=== PATIENT | male | born 1995 | race Caucasian/White ===

== ENCOUNTER 2017-05-05 10:04 | Emergency (ER) | payer MEDICAID ==
[~2017-05-05] VITALS: Ht 170.2 cm; Wt 95.3 kg
[2017-05-05 10:04] VITALS: BP_SYST 147
[2017-05-05 14:10] VITALS: BP_SYST 144
== END 2017-05-05 14:10 | disposition home or self-care (01) ==
LOC: SED 10:04
DX: J02.9 Acute pharyngitis, unspecified (principal); R05 Cough; I10 Essential (primary) hypertension; R51 Headache
CPT/HCPCS: 99283

== ENCOUNTER 2019-07-22 19:55 | Emergency (ER) | payer BC, MEDICAID ==
[~2019-07-22] VITALS: Ht 175.3 cm; Wt 90.7 kg
[2019-07-22 19:55] VITALS: BP_SYST 179
[2019-07-22 20:58] VITALS: BP_SYST 179
== END 2019-07-22 20:58 | disposition home or self-care (01) ==
LOC: SED 19:55
DX: J06.9 Acute upper respiratory infection, unspecified (principal); I10 Essential (primary) hypertension
CPT/HCPCS: 99282

== ENCOUNTER 2019-09-04 16:13 | Inpatient (IN) | payer BC ==
[~2019-09-04] VITALS: Ht 170.2 cm; Wt 96.2 kg
[2019-09-04 16:23] VITALS: BP_SYST 162
[2019-09-04] MEDS ORDERED: NACL 0.9% 1,000 ML IV SCH ×2 (16:36→19:15)
[2019-09-04] MEDS ORDERED: NACL 0.9% 1,000 ML IV ONE (16:36)
[2019-09-04] MEDS ORDERED: MORPHINE 4 MG/ML INJ. SYRINGE IVP ONE (16:45)
[2019-09-04] MEDS ORDERED: ONDANSETRON HCL 4 MG/2 ML VIAL IVP ONE ×2 (16:45)
[2019-09-04 16:58] LABS: BLOOD, URINE NEGATIVE (NEGATIVE); CLARITY/URINE CLEAR (CLEAR); GLUCOSE,URINE NEGATIVE (NEGATIVE); KETONES,URINE NEGATIVE (NEGATIVE); LEUKOCYTE ESTERASE ,URINE NEGATIVE (NEGATIVE); NITRITE, URINE NEGATIVE (NEGATIVE); PROTEIN URINE 1+ (NEGATIVE); UROBILINOGEN,URINE 0.2 (0.2-1.0)
[2019-09-04 17:05] LABS: BILIRUBIN,URINE NEGATIVE (NEGATIVE); COLOR,URINE AMBER (YELLOW)
[2019-09-04 17:06] LABS: BACTERIA,URINE None Seen /HPF (None Seen); RBC,URINE NONE SEEN /HPF (0-3); WBC,URINE 0-3 /HPF (0-3)
[2019-09-04 17:07] LABS: MUCUS,URINE None Seen /LPF (None Seen)
[2019-09-04 17:08] LABS: BASOPHILS % (AUTO) 0.5 % (0.0-2.0); EOSINOPHILS # (AUTO) 0.3 K/uL (0.0-0.4); EOSINOPHILS % (AUTO) 3.1 % (0.0-4.0); HEMATOCRIT 42.6 % (36-54); HEMOGLOBIN 14.9 g/dL (14.0-18.0); LYMPHOCYTES # (AUTO) 1.2 K/uL (1.0-5.5); MEAN CORPUSCULAR HEMOGLOBIN 31 pg (27-31); MEAN CORPUSCULAR HGB CONC 35 % (32-36); MEAN CORPUSCULAR VOLUME 89 fL (79.0-98.0); MONOCYTES # (AUTO) 0.9 K/uL (0.0-1.0); MONOCYTES % (AUTO) 8.6 % (1.7-9.3); NEUTROPHILS # (AUTO) 7.6 K/uL (1.8-7.7); NEUTROPHILS % (AUTO) 75.8 % (40.0-70.0); PLATELET COUNT (AUTO) 232 K/uL (130-430); RED CELL DISTRIBUTION WIDTH 12.3 % (9.0-15.0)
[2019-09-04 17:11] LABS: CALCIUM 8.5 mg/dL (8.4-11.0); CREATININE 1.12 mg/dL (0.55-1.30); POTASSIUM 3.2 mmol/L (3.5-5.1)
[2019-09-04 17:15] LABS: PROTHROMBIN TIME 10.1 SECS (9.5-12.5)
[2019-09-04 17:16] LABS: ALBUMIN 4.2 g/dL (3.4-4.8)
[2019-09-04] MEDS ORDERED: PIPERACILLIN/TAZO 3.375 GM in NS 50 ML IV ONE (17:45)
[2019-09-04] MEDS ORDERED: metroNIDAZOLE 500 mg/NS 100 ML IV ONE ×2 (18:00→21:42)
[2019-09-04] MEDS ORDERED: PIPERACILLIN/TAZOBACTAM 3.375 GM/VIAL (ZOSYN) IV ONE (18:11)
[2019-09-04] MEDS ORDERED: ACETAMINOPHEN 325 MG TABLET PO PRN (19:15)
[2019-09-04] MEDS ORDERED: ONDANSETRON HCL 4 MG/2 ML VIAL IVP PRN (19:15)
[2019-09-04] MEDS ORDERED: HYDROcodone/ACETAMIN 5-325 MG TAB (NORCO/ VICODIN) PO PRN (19:15)
[2019-09-04] MEDS ORDERED: LR 1,000 ML IV ONE ×2 (20:28→20:30)
[2019-09-04 20:34] VITALS: BP_SYST 158
[2019-09-04 20:46] LABS: PHOSPHORUS 4.1 mg/dL (2.7-4.5); THYROID STIMULATING HORMONE 1.37 uIu/mL (0.36-3.74)
[2019-09-04] MEDS: DOCUSATE SODIUM 100 MG CAPSULE PO SCH ×3 (21:00→22:55)
[2019-09-04] MEDS ORDERED: cefTRIAXone 1 GM VIAL ONE (21:42)
[2019-09-04] MEDS: LR 1,000 ML IV SCH (22:53)
[2019-09-04] MEDS: cefTRIAXone 1 GM in D5W 50 ML IV SCH (22:54)
[2019-09-04] MEDS: LISINOPRIL 10 MG TABLET (PRINIVIL) PO SCH (22:54)
[2019-09-04 23:59] LABS: BARBITURATE, URINE NEGATIVE (NEG <=200); BENZODIAZEPINE, URINE NEGATIVE (NEG <=150); CANNABINOID, URINE NEGATIVE (NEG <=50); COCAINE, URINE NEGATIVE (NEG <=150); METHAMPHETAMINES SCREEN,URINE NEGATIVE (NEG <=500); OPIATE, URINE NEGATIVE (NEG <=100); PHENCYCLIDINE SCREEN,URINE NEGATIVE (NEG <=25); UR TRICYCLIC ANTIDEPRESSANTS NEGATIVE (NEG <=300); URINE AMPHETAMINE NEGATIVE (NEG <=500); URINE METHADONE NEGATIVE (NEG <=200); URINE OXYCODONE SCREEN NEGATIVE (NEG <=100); URINE PROPOXYPHENE SCREEN NEGATIVE (NEG <=300)
[2019-09-05] MEDS ORDERED: POTASSIUM CHLORIDE 20 MEQ TAB.PRT.SR PO ONE ×2 (00:45→07:45)
[2019-09-05 00:51] VITALS: BP_SYST 159
[2019-09-05] MEDS: LR 1,000 ML IV SCH (04:54)
[2019-09-05] MEDS: metroNIDAZOLE 500 mg/NS 100 ML IV SCH ×3 (05:00→22:54)
[2019-09-05 06:11] LABS: BASOPHILS % (AUTO) 0.6 % (0.0-2.0); EOSINOPHILS # (AUTO) 0.5 K/uL (0.0-0.4); EOSINOPHILS % (AUTO) 6.7 % (0.0-4.0); HEMATOCRIT 39.2 % (36-54); HEMOGLOBIN 13.7 g/dL (14.0-18.0); LYMPHOCYTES # (AUTO) 1.5 K/uL (1.0-5.5); MEAN CORPUSCULAR HEMOGLOBIN 31 pg (27-31); MEAN CORPUSCULAR HGB CONC 35 % (32-36); MEAN CORPUSCULAR VOLUME 90 fL (79.0-98.0); MONOCYTES # (AUTO) 0.7 K/uL (0.0-1.0); MONOCYTES % (AUTO) 9.4 % (1.7-9.3); NEUTROPHILS # (AUTO) 4.2 K/uL (1.8-7.7); NEUTROPHILS % (AUTO) 61.3 % (40.0-70.0); PLATELET COUNT (AUTO) 222 K/uL (130-430); RED BLOOD CELL COUNT(AUTO) 4.37 MIL/uL (4.2-6.2); RED CELL DISTRIBUTION WIDTH 12.2 % (9.0-15.0); WHITE BLOOD COUNT (AUTO) 6.9 K/uL (4.8-10.8)
[2019-09-05 06:30] LABS: CALCIUM 8.1 mg/dL (8.4-11.0); CREATININE 0.84 mg/dL (0.55-1.30); POTASSIUM 3.4 mmol/L (3.5-5.1)
[2019-09-05] MEDS: DOCUSATE SODIUM 100 MG CAPSULE PO SCH ×2 (07:30→21:01)
[2019-09-05] MEDS: LISINOPRIL 10 MG TABLET (PRINIVIL) PO SCH (07:31)
[2019-09-05 08:12] VITALS: BP_SYST 152
[2019-09-05] MEDS ORDERED: ONDANSETRON HCL 4 MG/2 ML VIAL IVP PRN (08:30)
[2019-09-05] MEDS ORDERED: fentaNYL CITRATE/PF 100 MCG/2 ML AMP IVP PRN ×2 (08:30)
[2019-09-05] MEDS ORDERED: HYDROmorphone 1 MG INJ. 1 MG/ML AMPUL IM PRN (09:15)
[2019-09-05 11:15] VITALS: BP_SYST 154
[2019-09-05] MEDS: HYDROmorphone 1 MG INJ. 1 MG/ML AMPUL IVP PRN ×3 (13:10→22:55)
[2019-09-05 16:59] VITALS: BP_SYST 139
[2019-09-05 19:20] VITALS: BP_SYST 136
[2019-09-05] MEDS: cefTRIAXone 1 GM in D5W 50 ML IV SCH (21:00)
[2019-09-05 23:48] VITALS: BP_SYST 134
[2019-09-06] MEDS: HYDROmorphone 1 MG INJ. 1 MG/ML AMPUL IVP PRN ×2 (03:22→09:14)
[2019-09-06] MEDS: metroNIDAZOLE 500 mg/NS 100 ML IV SCH (05:10)
[2019-09-06 06:43] LABS: BASOPHILS % (AUTO) 0.3 % (0.0-2.0); EOSINOPHILS # (AUTO) 0.4 K/uL (0.0-0.4); EOSINOPHILS % (AUTO) 4.9 % (0.0-4.0); HEMATOCRIT 37.5 % (36-54); LYMPHOCYTES % (AUTO) 14.2 % (20.5-51.5); MEAN CORPUSCULAR HEMOGLOBIN 31 pg (27-31); MEAN CORPUSCULAR HGB CONC 35 % (32-36); MEAN CORPUSCULAR VOLUME 90 fL (79.0-98.0); MONOCYTES # (AUTO) 0.6 K/uL (0.0-1.0); MONOCYTES % (AUTO) 8.3 % (1.7-9.3); NEUTROPHILS # (AUTO) 5.3 K/uL (1.8-7.7); NEUTROPHILS % (AUTO) 72.3 % (40.0-70.0); PLATELET COUNT (AUTO) 220 K/uL (130-430); RED BLOOD CELL COUNT(AUTO) 4.16 MIL/uL (4.2-6.2); RED CELL DISTRIBUTION WIDTH 12.2 % (9.0-15.0); WHITE BLOOD COUNT (AUTO) 7.4 K/uL (4.8-10.8)
[2019-09-06 07:28] LABS: CALCIUM 8.1 mg/dL (8.4-11.0); CREATININE 1.03 mg/dL (0.55-1.30); POTASSIUM 3.4 mmol/L (3.5-5.1)
[2019-09-06] MEDS: DOCUSATE SODIUM 100 MG CAPSULE PO SCH (08:45)
[2019-09-06] MEDS: LISINOPRIL 10 MG TABLET (PRINIVIL) PO SCH (08:46)
[2019-09-06 08:48] VITALS: BP_SYST 153
[2019-09-06] MEDS ORDERED: HYDR-4272 PO (10:59)
[2019-09-06 12:25] VITALS: BP_SYST 137
[2019-09-06 14:29] VITALS: BP_SYST 137
[2019-09-06 16:22] VITALS: BP_SYST 137
== END 2019-09-06 15:08 | disposition home or self-care (01) | DRG 343 ==
LOC: SED 16:13 → SMU 18:20
PROVIDERS: ADMIT Student in an Organized Health Care Education/Training Program; ATTEND Student in an Organized Health Care Education/Training Program
PROC: 0DTJ4ZZ Resection of Appendix, Percutaneous Endoscopic Approach (ICD-10-PCS; principal; 2019-09-05 08:00)
DX: K37 Unspecified appendicitis (principal); E87.6 Hypokalemia; R74.0 Nonspecific elevation of levels of transaminase and lactic acid dehydrogenase [LDH]; I10 Essential (primary) hypertension
CPT/HCPCS: 36415; 71045; 80048; 80053; 80061; 80307; 81000-TC; 82150-TC; 82962; 83605; 83690-TC; 83735-TC; 84100-TC; 84443-TC; 84484; 85025; 85610-TC; 85730-TC; 86886; 86900; 86901; 87040-TC; 87081; 88304; 93005; 94760; 96365; 96367; 99285; C1727; J0696; J1170; J2270; J2405; J2543; J3490; J7030; J7060; J7120

== ENCOUNTER 2020-02-25 23:37 | Emergency (ER) | payer BC ==
[~2020-02-25] VITALS: Ht 170.2 cm; Wt 97.5 kg
[~2020-02-25 23:37] MED LIST: HYDR-4272 PO
[2020-02-26 00:15] VITALS: BP_SYST 182
[2020-02-26] MEDS ORDERED: cloNIDine HCL 0.1 MG TABLET PO ONE (00:45)
[2020-02-26 01:15] VITALS: BP_SYST 119
== END 2020-02-26 01:15 | disposition home or self-care (01) ==
LOC: SED 23:37
DX: I10 Essential (primary) hypertension (principal)
CPT/HCPCS: 99283

== ENCOUNTER 2020-04-06 19:51 | Emergency (ER) | payer BC ==
[~2020-04-06] VITALS: Ht 172.7 cm; Wt 90.7 kg
[2020-04-06 20:00] VITALS: BP_SYST 148
[2020-04-06] MEDS ORDERED: amLODIPine BESYLATE 5 MG TABLET PO ONE (21:00)
[2020-04-06] MEDS ORDERED: amLODIPine BESYLATE 5 MG TABLET ONE (21:41)
[2020-04-06 21:57] VITALS: BP_SYST 141
== END 2020-04-06 21:57 | disposition home or self-care (01) ==
LOC: SED 19:51
DX: I10 Essential (primary) hypertension (principal)
CPT/HCPCS: 99283